=== PATIENT | male | born 1955 | race Caucasian/White ===

== ENCOUNTER 2022-12-15 00:26 | Day surgery (SDC) | payer BC, SELFPAY ==
[2022-12-02 10:06] VITALS: BMI 46.3
[2022-12-15 08:22] LABS: Glucose Point of Care 137 mg/dl (65-105)
[2022-12-15 08:23] VITALS: BP 136/72; PULSE 86; RESP 18; TEMP 36.2; O2SAT 97
[2022-12-15] MEDS: LACTATED RINGERS 1,000 ML 150 ML IV CONT (08:25)
--- NOTE | 2022-12-15 09:02 | WPDANESEPPF ---
Anes - Initial Pre Proc Eval Procedure: Operation Date: 12/15/22 09:30 Proposed Procedures p Esophagogastroduodenoscopy - Alfred Clinton MD Date/Time: 12/15/22 09:02 Surgeon: Alfred Clinton MD Pre Op Diagnosis: dysphagia Patient Data Age: 67 Gender: M Height: 1.83 m Weight: 143.5 kg Last Vital Signs Temp 97.1 F L 12/15/22 08:23 Pulse 86 12/15/22 08:23 Resp 18 12/15/22 08:23 BP 136/72 12/15/22 08:23 Pulse Ox 97 12/15/22 08:23 O2 Del Method Room Air 12/15/22 08:23 Allergies Allergy/AdvReac Type Severity Reaction Status Date / Time lisinopril Allergy Severe ANGIOEDEMA Verified 12/15/22 08:21 APRIL Inhibitors Allergy Unknown Unknown Verified 12/15/22 08:21 Home Medications Medication Instructions Recorded Confirmed Type blood sugar diagnostic #10 ea 10/23/19 11/25/22 History aspirin 81 mg tablet,delayed 81 mg PO DAILY 06/25/20 12/15/22 History release (Adult Low Dose Aspirin) dulaglutide 1.5 mg/0.5 mL See Rx Instructions .Route 06/17/22 12/15/22 Rx subcutaneous pen injector .COMPLEX #8 mL (Trulicity) empagliflozin 25 mg tablet 25 mg PO DAILY #30 tabs 08/11/22 12/15/22 Rx (Jardiance) metformin 500 mg tablet,extended 1,500 mg PO QPM #270 tabs 08/14/22 12/15/22 Rx release 24 hr indapamide 1.25 mg tablet 1.25 mg PO QAM #30 tabs 09/08/22 12/15/22 Rx lancets (OneTouch UltraSoft #300 ea 10/04/22 11/25/22 Rx Lancets) omeprazole 20 mg capsule,delayed 20 mg PO DAILY #30 caps 11/11/22 12/15/22 Rx release blood sugar diagnostic (OneTouch See Rx Instructions .Route 11/30/22 12/15/22 Rx Ultra Test strips) .COMPLEX #300 strips glipizide 5 mg tablet 5 mg PO DAILY #90 tabs 11/30/22 12/15/22 Rx amlodipine 10 mg tablet 10 mg PO DAILY 12/15/22 12/15/22 History diclofenac sodium 75 mg 75 mg PO BID 12/15/22 12/15/22 History tablet,delayed release simvastatin 20 mg tablet 20 mg PO DAILY 12/15/22 12/15/22 History Laboratory Tests 12/15/22 08:19 POC Capillary Glucose 137 mg/dl H mg/dl (65-105) Patient hx anesthesia problems: none Family hx anesthesia problems: none Results Review: All pre-operative results and documents have been reviewed as part of the pre-operative evaluation. 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 Type 2 diabetes mellitus Surgical History Surgical History H/O total knee replacement (~2017) History of facial surgery (~2013) tumorectomy Family History Family History Father AD (Alzheimer's disease) COPD (chronic obstructive pulmonary disease) Hypertension Mother Heart disease Diabetes mellitus Hypertension Dementia Grandparent Diabetes mellitus Mother Diabetes mellitus Hypertension Family history of cardiovascular disease Father Hypertension Family history of Alzheimer's disease Social History Social History Smoking packs per day: 0.5 Smoking cigarettes per day: 10.0 Years smoked: 44 Smoking pack-years: 22.00 Smoking status: Former smoker Tobacco type: cigarettes Second hand tobacco smoke exposure: No Smoking end date: 06/25/17 Alcohol intake: never Substance use: never Substance use type: does not use Living arrangements: with family Occupation/Education: retired Gender identity (if verbalized by the patient): Male Sexual Orientation (if Verbalized by the Patient): Straight or Heterosexual Spiritual care concerns: No Ag
--- NOTE | 2022-12-15 09:31 | WPDHPUPDATE1 ---
History and Physical Update Update Date/Time: 12/15/22 09:31 History and Physical has been reviewed, including an updated exam of the patient. There are NO changes in the patient's condition. Risks, benefits, and alternatives have been discussed and questions answered. Patient agrees to proceed with procedure.
[2022-12-15 09:53] VITALS: BP 145/100; PULSE 77; RESP 20; O2SAT 98
[2022-12-15 10:03] VITALS: BP 153/88; PULSE 76; RESP 17; O2SAT 100
[2022-12-15 10:13] VITALS: BP 141/100; PULSE 79; RESP 20; O2SAT 100
== END 2022-12-15 10:30 | disposition home or self-care (01) ==
PROVIDERS: PCP Family Medicine; Visit Provider Internal Medicine Gastroenterology
PROC: 0DJ08ZZ Inspection of Upper Intestinal Tract, Via Natural or Artificial Opening Endoscopic (ICD-10-PCS; CPT 43235; principal; 2022-12-15 09:30)
DX: C15.5 Malignant neoplasm of lower third of esophagus (principal); K29.70 Gastritis, unspecified, without bleeding; I10 Essential (primary) hypertension; E78.2 Mixed hyperlipidemia; E11.9 Type 2 diabetes mellitus without complications; Z87.891 Personal history of nicotine dependence; E66.01 Morbid (severe) obesity due to excess calories; Z68.41 Body mass index [BMI] 40.0-44.9, adult; Z79.82 Long term (current) use of aspirin; Z79.899 Other long term (current) drug therapy; Z79.84 Long term (current) use of oral hypoglycemic drugs
CPT/HCPCS: 43239; 43249; 82948; 88305; 88313; 88342; C1726; J2704; J7120

== ENCOUNTER 2022-12-31 07:37 | Outpatient (CLI) | payer BC, SELFPAY ==
--- NOTE | ~2022-12-31 | PE_ITS ---
EXAMINATION: PET skull to mid thigh DATE: 12/31/2022 09:38 INDICATION: Cancer of distal third of esophagus. TECHNIQUE: 9.986 mCi of 18-fluorodeoxyglucose (18-FDG) was administered i.v. Low dose computed tomogr aphy (CT) images were acquired from the base of the brain to the proximal thighs for attenuation christopher ection and anatomic localization. Automated exposure control was employed. Dose-length product (DLP) was 1291 mGy-cm. Positron emission tomography (PET) images were acquired in the same distribution. COMPARISON: None FINDINGS: Head/neck: There are no pathologically enlarged lymph nodes. Chest: There is no pulmonary nodule or pleural effusion. The heart size is normal. No pericardial eff usion. There are coronary artery calcifications. There is wall thickening at the gastroesophageal rafael ction with maximum SUV of 17.9. Abdomen/pelvis/proximal thighs: The liver and spleen are normal. There is a gallstone in the gallblad jake. The pancreas, adrenal glands, and kidneys are normal. There is diverticulosis of the colon witho ut evidence of diverticulitis. There is an umbilical hernia containing fat. The prostate is mildly en larged. The appendix is normal. There is a 2.7 x 1.8 cm gastrohepatic node with maximum SUV of 13.8. There is no free intraperitoneal fluid. IMPRESSION: 1. Wall thickening at the gastroesophageal junction with increased activity, consistent with primary malignancy. 2. Enlarged gastrohepatic lymph node with increased activity, consistent with metastatic disease. Reviewed, dictated and finalized at location A. [employer] IMPRESSION: 1. Wall thickening at the gastroesophageal junction with increased activity, co nsistent with primary malignancy. 2. Enlarged gastrohepatic lymph node with increased activity, consistent with m etastatic disease.
[2022-12-31 08:10] LABS: Glucose Point of Care 105 mg/dl (65-105)
== END 2022-12-31 07:38 | disposition home or self-care (01) ==
PROVIDERS: PCP Family Medicine; Visit Provider Internal Medicine Hematology & Oncology
DX: C15.5 Malignant neoplasm of lower third of esophagus (principal)
CPT/HCPCS: 78815; A9552